=== PATIENT | male | born 1955 | race American Indian/Alaskan Native ===

== ENCOUNTER 2021-04-21 08:38 | Emergency (ER) | payer MEDICARE ==
--- NOTE | 2021-04-21 08:43 | Emergency Department Report ---
Blank Doc - Documentation Documentation: 66-year-old male that presents with postop complications of groin pain and swe lling. Denies any testicular pain or swelling. Patient is postop of prostate surgery last week. 1- This initial assessment/diagnostic orders/clinical plan/ treatment(s) is/are subject to change based on pt's health status, clinical progression and re- assessment by fellow clinical providers in the ED. Further treatment and workup at subsequent clinical provers discretion. Patient/guardians urged not to elope from ED as their condition may be serious if not clinically assessed and managed. 2-labs 3-UA
[2021-04-21 09:22] LABS: Basophils % (Auto) 0.2 % (0.0-1.8); Eosinophils # (Auto) 0.1 K/mm3 (0.0-0.4); Eosinophils % (Auto) 0.7 % (0.0-4.3); Hematocrit 49.1 % (35.5-45.6); Hemoglobin 16.6 gm/dl (11.8-15.2); Lymphocytes # (Auto) 3.6 K/mm3 (1.2-5.4); Lymphocytes % (Auto) 30.6 % (13.4-35.0); Mean Corpuscular HGB Conc 34 % (32-34); Mean Corpuscular Volume 95 fl (84-94); Monocytes # (Auto) 0.7 K/mm3 (0.0-0.8); Monocytes % (Auto) 6.1 % (0.0-7.3); Platelet Count 173 K/mm3 (140-440); Red Blood Count 5.19 M/mm3 (3.65-5.03); Red Cell Distribution Width 15.4 % (13.2-15.2)
[2021-04-21 09:40] LABS: Alanine Aminotransferase 21 units/L (7-56); Albumin 4.7 g/dL (3.9-5); BUN/Creatinine Ratio 11; Blood Urea Nitrogen 16 mg/dL (9-20); Calcium 9.9 mg/dL (8.4-10.2); Hemolysis Index 10
--- NOTE | 2021-04-21 09:47 | Emergency Department Report ---
HPI - General Chief Complaint: Pain General Time Seen by Provider: 04/21/21 08:42 - HPI HPI: Room 2 The patient is a 66-year-old male present with a chief complaint of urinary retention and pain. The patient states he is status post prostate surgery for an enlarged prostate 04/09/[address] Person in the office. The patient states for the past 4 to 5 days he's had difficulty urinating stating the urine only "dribbles out." Patient denies history of fever. ED Past Medical Hx - Past Medical History Previous Medical History?: Yes Hx CVA: Yes (2006) Hx HIV: Yes - Surgical History Past Surgical History?: Yes Additional Surgical History: Prostate - Family History Family history: no significant - Social History Smoking Status: Never Smoker Substance Use Type: None - Medications Home Medications: Home Medications Medication Instructions Recorded Confirmed Last Taken Type Ciprofloxacin HCl 500 mg PO BID #20 tablet 04/21/21 Unknown Rx ED Review of Systems ROS: Stated complaint: GROIN PAIN Other details as noted in HPI Constitutional: denies: fever Eyes: denies: eye pain ENT: denies: throat pain Respiratory: no symptoms reported Cardiovascular: denies: chest pain Endocrine: no symptoms reported Gastrointestinal: abdominal pain Genitourinary: other (Urinary retention) Musculoskeletal: denies: back pain Neurological: denies: headache Physical Exam - Physical Exam Vital Signs: Vital Signs 04/21/21 08:43 Temperature 98.8 F Pulse Rate 81 Respiratory 20 Rate Blood Pressure 212/122 O2 Sat by Pulse 97 Oximetry Physical Exam: GENERAL: The patient is well-developed well-nourished male standing in room appearing to be in moderate disc. [] HEENT: Normocephalic. Atraumatic. Extraocular motions are intact. Patient has moist mucous membranes. NECK: Supple. Trachea midline CHEST/LUNGS: Clear to auscultation. There is no respiratory distress noted. HEART/CARDIOVASCULAR: Regular. There is no tachycardia. There is no gallop rub or murmur. ABDOMEN: There is bladder fullness. Patient has normal bowel sounds. There is no abdominal distention. SKIN: There is no rash. There is no edema. There is no diaphoresis. NEURO: The patient is awake, alert, and oriented. The patient is cooperative. The patient has no focal neurologic deficits. The patient has normal speech and gait. MUSCULOSKELETAL: There is no evidence of acute injury. ED Course Vital Signs 04/21/21 08:43 Temperature 98.8 F Pulse Rate 81 Respiratory 20 Rate Blood Pressure 212/122 O2 Sat by Pulse 97 Oximetry - Reevaluation(s) Reevaluation #1: 04/21/21 10:39 Patient states he feels improved status post Porras placement - Consultations Consultation #1: 04/21/21 10:39 Urology paged 04/21/21 10:[address] Person-recommends giving patient gentamicin 80 mg prior to discharge, initiating ciprofloxacin x10 days. Patient should keep his appointment 04/18/2021 in the office. Will call in a prescription for Uroxatrol ED Medical Decision Making - Lab Data Result diagrams: 04/21/21 08:49 04/21/21 08:49 Laboratory Tests 04/21/21 04/21/21 04/21/21 08:49 08:49 09:54 WBC 11.8 H RBC 5.19 H Hgb 16.6 H Hct 49.1 H MCV 95 H MCH 32 MCHC 34 RDW 15.4 H Plt Count 173 Lymph % (Auto) 30.6 Wilkin % (Auto) 6.1 Eos % (Auto) 0.7 Baso % (Auto) 0.2 Lymph # (Auto) 3.6 Wilkin # (Auto) 0.7 Eos # (Auto) 0.1 Baso # (Auto) 0.0 Seg Neutrophils % 62.4 Seg Neutrophils # 7.4 Sodium 133 L Potassium 4.1 Chloride 94.6 L Carbon Dioxide 24 Anion Gap 19 BUN 16 Creatinine 1.4 H Estimated GFR > 60 BUN/Creatinine Ratio 11 Glucose 107 H Calcium 9.9 Total Bilirubin 0.40 AST 24 ALT 21 Alkaline Phosphatase 76 Total Protein 9.1 H Albumin 4.7 Albumin/Globulin Ratio 1.1 Urine Color Katheryn Urine Turbidity Cloudy Urine pH 6.0 Ur Specific [place] 1.015 Urine Protein >500 Urine Glucose (UA) Neg Urine Ketones Tr Urine Blood Sm Urine Nitrite Neg Urine Bilirubin Neg Urine Urobilinogen < 2.0 Ur Leukocyte Esterase Sm Urine WBC (Auto) 117.0 H Urine RBC (Auto) 35.0 Urine Bacteria (Auto) 1+ - Differential Diagnosis Urinary retention, UTI Critical care attestation.: If time is entered above; I have spent that time in minutes in the direct care of this critically ill patient, excluding procedure time. ED Disposition Clinical Impression: Urinary retention, UTI (urinary tract infection) Disposition: - TO HOME OR SELFCARE Is pt being admited?: No Does the pt Need Aspirin: No Condition: Stable Instructions: Urinary Tract Infection, Adult, [id number], Acute Urinary Retention, Male Additional Instructions: Return to the emergency department should you develop worsening symptoms, inability to tolerate food or liquids, high fever or any other concerns Prescriptions: Ciprofloxacin HCl 500 mg PO BID #20 tablet Referrals: VIDHYA ACOSTA MD [Primary Care Provider] - 3-5 Days MIKO PERSON MD [Staff Physician] - 04/26/21 (It is important that you keep your appointment with your urologist Dr. Person 04/26/2021.) Time of Disposition: 11:00
[2021-04-21 10:23] LABS: Bacteria,Urine 1+ /HPF (Negative); Bilirubin,Urine NEG (Negative); Blood,Urine SM (Negative); Color,Urine Amber (Yellow); Urobilinogen,Urine < 2.0 mg/dL (<2.0)
[2021-04-21 10:30] LABS: Protein,Urine >500 mg/dL (Negative)
[2021-04-21 10:47] VITALS: BP 133/78
[2021-04-21] MEDS ORDERED: GENTAMICIN 80 MG in SODIUM CHLORIDE 0.9% 100 ML IV ONE ×2 (10:56→12:00)
[2021-04-21] MEDS ORDERED: GENTAMICIN/NS 80 MG/100 ML 100 ML IV ONE (12:00)
== END 2021-04-21 12:34 | disposition home or self-care (01) ==
LOC: ED 08:38
DX: R33.9 Retention of urine, unspecified (principal); N39.0 Urinary tract infection, site not specified; Z21 Asymptomatic human immunodeficiency virus [HIV] infection status; Z86.73 Personal history of transient ischemic attack (TIA), and cerebral infarction without residual deficits; Z79.899 Other long term (current) drug therapy
CPT/HCPCS: 36415; 51702; 80053; 81001; 85025; 87076; 87086; 87186; 96365; 99283; J1580

== ENCOUNTER 2021-05-13 22:21 | Emergency (ER) | payer MEDICARE ==
[2021-05-13 23:55] LABS: Bacteria,Urine 1+ /HPF (Negative); Bilirubin,Urine NEG (Negative); Blood,Urine NEG (Negative); Color,Urine Yellow (Yellow); Mucus,Urine FEW /HPF; Urobilinogen,Urine < 2.0 mg/dL (<2.0)
[2021-05-14] MEDS ORDERED: levoFLOXacin 500 MG TAB PO ONE (02:54)
--- NOTE | 2021-05-14 02:57 | Emergency Department Report ---
HPI - General Chief Complaint: Urogenital-Male Time Seen by Provider: 05/14/21 02:46 - HPI HPI: This is a 66-year-old male who presents to the emergency department with a complaint of urinary retention that has been going on since this morning. The patient says that he can get out a very small amount of urine when he attempts to do so but calls it a "dribble." The patient was seen on 04/21 with the same issue and had a Porras catheter placed at that time. He also had a urinary tract infection at that time and the culture came back positive for E. coli. After discharge, the patient followed up outpatient with Dr. Person, urology, and he says that the Porras catheter was removed at that time. The patient has a history of CVA with left-sided deficits, HIV, and an enlarged prostate. He says that he was placed on tamsulosin "which helped for a little while but then it got bad again." He denies any fever, nausea, vomiting, diaphoresis, back pain. ED Past Medical Hx - Past Medical History Hx CVA: Yes (2006) Hx HIV: Yes - Surgical History Additional Surgical History: Prostate - Social History Smoking Status: Never Smoker Substance Use Type: None - Medications Home Medications: Home Medications Medication Instructions Recorded Confirmed Last Taken Type Ciprofloxacin HCl 500 mg PO BID #14 tablet 05/14/21 Unknown Rx ED Review of Systems ROS: Stated complaint: UNABLE TO URINATE Other details as noted in HPI Comment: All other systems reviewed and negative Constitutional: denies: chills, fever Eyes: denies: eye pain, vision change ENT: denies: ear pain, throat pain Respiratory: denies: cough, shortness of breath Cardiovascular: denies: chest pain, palpitations Gastrointestinal: abdominal pain. denies: nausea, vomiting Genitourinary: other (Urinary retention). denies: discharge Musculoskeletal: denies: back pain, arthralgia Skin: denies: rash, lesions Neurological: denies: headache, weakness Physical Exam - Physical Exam Physical Exam: GENERAL: The patient is well-developed well-nourished. HENT: Normocephalic. Atraumatic. Patient has moist mucous membranes. EYES: Extraocular motions are intact. NECK: Supple. Trachea is midline. CHEST/LUNGS: Clear to auscultation. There is no respiratory distress noted. HEART/CARDIOVASCULAR: Regular. There is no tachycardia. There is no murmur. ABDOMEN: Abdomen is soft, nontender. Patient has normal bowel sounds. SKIN: Skin is warm and dry. NEURO: The patient is awake, alert, and oriented. The patient is cooperative. Normal speech. MUSCULOSKELETAL: There is no tenderness or deformity. ED Medical Decision Making - Lab Data Lab Results 05/13/21 Range/Units 23:23 Urine Color Yellow (Yellow) Urine Turbidity Slightly-cloudy (Clear) Urine pH 7.0 (5.0-7.0) Ur Specific [place] 1.018 (1.003-1.030) Urine Protein 100 mg/dl (Negative) mg/dL Urine Glucose (UA) Neg (Negative) mg/dL Urine Ketones Neg (Negative) mg/dL Urine Blood Neg (Negative) Urine Nitrite Neg (Negative) Urine Bilirubin Neg (Negative) Urine Urobilinogen < 2.0 (<2.0) mg/dL Ur Leukocyte Esterase Lg (Negative) Urine WBC (Auto) 136.0 H (0.0-6.0) /HPF Urine RBC (Auto) 26.0 (0.0-6.0) /HPF Urine Bacteria (Auto) 1+ (Negative) /HPF Urine Mucus Few /HPF Urine Yeast (Budding) 2+ /HPF - Medical Decision Making This patient presents with a complaint of urinary retention since this morning. He has a previous instance of this about 2 weeks ago. The patient was seen through triage appearing very uncomfortable and a Porras catheter was placed. The patient put out about 1 L of urine. I saw the patient once he had come back to room #38. At this time the patient is feeling greatly improved and has no complaints of any abdominal or suprapubic pain. The Porras catheter is in place. Urinalysis shows a significant urinary tract infection. The patient had a UTI 2 weeks ago and the culture came back positive for E. coli. It is susceptible to Cipro/fluoroquinolones. The patient was given a dose of Levaquin here and will be given a prescription for Cipro for home. After the patient had the Porras catheter placement his blood pressure improved he has good outpatient follow-up with his urologist, Dr. Person.. Critical Care Time: No Critical care attestation.: If time is entered above; I have spent that time in minutes in the direct care of this critically ill patient, excluding procedure time. ED Disposition Clinical Impression: Acute urinary retention UTI (urinary tract infection) Qualifiers: Urinary tract infection type: acute cystitis Hematuria presence: without hematuria Qualified Code(s): N30.00 - Acute cystitis without hematuria Disposition: TO HOME OR SELFCARE Is pt being admited?: No Condition: Stable Instructions: Indwelling Urinary Catheter Care, Adult, Urinary Tract Infection, Adult, Acute Urinary Retention, Male Additional Instructions: Please follow-up with your urologist in the next few days. Take your med ications as prescribed. Return to the emergency department with any worsening of your symptoms, new or concerning symptoms not addressed during this current emergency department visit, or with any acute distress. Prescriptions: Ciprofloxacin HCl 500 mg PO BID #14 tablet Referrals: MIKO PERSON MD [Staff Physician] - 2-3 Days Time of Disposition: 02:59
[2021-05-14 03:38] VITALS: BP 173/96
== END 2021-05-14 03:45 | disposition home or self-care (01) ==
LOC: ED 22:21
DX: N39.0 Urinary tract infection, site not specified (principal); R33.9 Retention of urine, unspecified; Z98.890 Other specified postprocedural states; Z86.73 Personal history of transient ischemic attack (TIA), and cerebral infarction without residual deficits; Z21 Asymptomatic human immunodeficiency virus [HIV] infection status; Z79.2 Long term (current) use of antibiotics
CPT/HCPCS: 51702; 81001

== ENCOUNTER 2021-06-10 19:07 | Emergency (ER) | payer MEDICARE ==
[2021-06-10 19:52] VITALS: BP 172/93
--- NOTE | 2021-06-10 21:07 | Emergency Department Report ---
ED General Adult HPI - General Chief complaint: Urogenital-Male Stated complaint: PROSTATE ISSUES Time Seen by Provider: 06/10/21 21:01 Source: patient Mode of arrival: Ambulatory Limitations: Physical Limitation - History of Present Illness Initial comments: 66-year-old male patient with history of prostate issues presents to the emergency department with complaints of Porras catheter bag leaking starting today. Patient states this has been a recurrent issue. He is scheduled to see his urologist tomorrow. He has wrapped a trash bag around the Porras bag in order to prevent further leakage. Patient has no other complaints. - Related Data Previous Rx's Medication Instructions Recorded Last Taken Type Ciprofloxacin HCl 500 mg PO BID #14 tablet 05/14/21 Unknown Rx Allergies Allergy/AdvReac Type Severity Reaction Status Date / Time No Known Allergies Allergy Verified 04/21/21 10:58 ED Review of Systems ROS: Stated complaint: PROSTATE ISSUES Other details as noted in HPI Other: GENERAL: Negative for fever. CARDIOVASCULAR: Negative for chest pain. PULMONARY: Negative for shortness of breath. GASTROINTESTINAL: Negative for abdominal pain. MUSCULOSKELETAL: Negative for back pain. NEUROLOGICAL: Negative for headache. INTEGUMENTARY: Negative for rash. ED Past Medical Hx - Past Medical History Previous Medical History?: Yes Hx Hypertension: Yes Hx CVA: Yes (2006) Hx HIV: Yes - Surgical History Past Surgical History?: Yes Additional Surgical History: Prostate - Social History Smoking Status: Never Smoker Substance Use Type: None - Medications Home Medications: Home Medications Medication Instructions Recorded Confirmed Last Taken Type Ciprofloxacin HCl 500 mg PO BID #14 tablet 05/14/21 Unknown Rx ED Physical Exam - General Limitations: Physical Limitation - Other Other exam information: General: Awake, appropriately interactive, no acute distress. Neck: Supple. Full range of motion intact. Cardiovascular: Normal peripheral perfusion. Pulmonary: No respiratory distress. Patient is speaking normally without use of accessory muscles. Genitourinary: Leaking Porras bag noted to right leg. Skin: No apparent rashes or lesions. Neurological: No facial asymmetry. Speech is clear. Follows commands. Patient is alert and oriented. Musculoskeletal: Moves all four extremities spontaneously with normal range of motion. Psych: Cooperative. Appropriate mood and affect. ED Course Vital Signs 06/10/21 19:51 Temperature 98.4 F Pulse Rate 57 L Respiratory 16 Rate Blood Pressure 172/93 O2 Sat by Pulse 98 Oximetry ED Medical Decision Making - Medical Decision Making Patient with history of prostate issues presents to the emergency department requesting a new Porras bag. His Porras bag started leaking today. He has no other complaints. He is afebrile, hemodynamically stable, no distress. Porras bag changed by inspector electromechanical without complications. Discharged home in stable condition to follow-up with his urologist tomorrow as previously scheduled. Strict return precautions provided. Repeat exam is unremarkable and benign. History, exam, diagnostic testing, and current condition do not suggest worrisome pathology to warrant further testing, continued ED treatment, admission, or surgical evaluation at this point. Given the low probability of a significant medical illness, it would be more likely to result in harm than benefit to perform further testing at this stage. Discussed findings, presumptive diagnosis, need for follow-up and specific signs/symptoms that should prompt immediate return to the emergency department. Instructions were explained in detail to the patient in addition to giving written discharge information. Patient expressed understanding and was given the opportunity to ask questions, all of which were satisfactorily answered prior to discharge home. Critical care attestation.: If time is entered above; I have spent that time in minutes in the direct care of this critically ill patient, excluding procedure time. ED Disposition Clinical Impression: Porras catheter problem Qualifiers: Encounter type: initial encounter Qualified Code(s): T83.9XXA - Unspecified complication of genitourinary prosthetic device, implant and graft, initial encounter Disposition: DC- TO HOME OR SELFCARE Is pt being admited?: No Does the pt Need Aspirin: No Condition: Stable Instructions: Benign Prostatic Hyperplasia Additional Instructions: Follow-up with your urologist tomorrow as previously scheduled. Return to the emergency department immediately for new or worsening symptoms. Referrals: MIKO WHITMORE MD [Staff Physician] - 3-5 Days Time of Disposition: 21:07
== END 2021-06-10 21:10 | disposition home or self-care (01) ==
LOC: ED 19:07
DX: T83.9XXA Unspecified complication of genitourinary prosthetic device, implant and graft, initial encounter (principal); I10 Essential (primary) hypertension; Z86.73 Personal history of transient ischemic attack (TIA), and cerebral infarction without residual deficits; Z98.890 Other specified postprocedural states; Z21 Asymptomatic human immunodeficiency virus [HIV] infection status; Y92.89 Other specified places as the place of occurrence of the external cause
CPT/HCPCS: 99282